=== PATIENT | female | born 1995 | race Caucasian/White ===

== ENCOUNTER 2017-05-01 08:32 | Outpatient (CLI) | payer BC ==
--- NOTE | 2017-05-01 09:55 | ULT ---
ABDOMINAL ULTRASOUND: Date: 05-01-17 Provided Clinical History: Abdominal pain. FINDINGS: Visualized abdominal aorta, IVC, and pancreas appear normal. Liver demonstrates no evidence for mass or intrahepatic biliary ductal dilatation. Common duct is not dilated. Gallbladder demonstrates no st ones, wall thickening or pericholecystic fluid. Kidneys demonstrate no hydronephrosis or mass. Spleen is not enlarged and demonstrates no focal abnormality. IMPRESSION: Unremarkable abdominal ultrasound. POS: [facility]
== END 2017-05-01 08:33 | disposition home or self-care (01) ==
LOC: ULT 08:32
PROVIDERS: ATTEND Internal Medicine
DX: R10.33 Periumbilical pain (principal); R19.4 Change in bowel habit; R14.2 Eructation
CPT/HCPCS: 76700

== ENCOUNTER 2017-06-24 07:35 | Outpatient (CLI) | payer BC ==
--- NOTE | 2017-06-24 11:06 | CT ---
CT ABDOMEN AND PELVIS WITH AND WITHOUT CONTRAST: Date: 06/24/17 HISTORY: R10.33. Periumbilical pain. COMPARISON: Ultrasound abdomen dated 05/01/17. FINDINGS: On the noncontrast CT, there is no nephroureterolithiasis or hydroureteronephrosis. No calculi within the urinary bladder, nor within the ureters. There are Schmorl's nodes throughout the thoracic spine. There is a circumferential disc bulge at L4- 5 narrowing the spinal canal approximately 7.0 mm, also causing moderate bilateral neural foraminal n arrowing. SI joints are without significant erosions. Pubic symphysis is without significant erosions. The lung bases are clear. No pericardial effusion. Aortoiliac contour is normal. No dilated loops of large or small bowel. Appendix is visualized and is normal. Spleen, liver, gallbl adder, and pancreas are all normal. No ventral hernia. No abnormal small or large bowel enhancement. No increased mesenteric fat. No hyperemia. Normal rotation proximal small bowel, as well as SMA and S MV. Kidneys are normal. IMPRESSION: Normal exam. POS: [facility]
[2017-06-24] MEDS ORDERED: Iopamidol 370 76% 100 ML VIAL ONE (16:08)
== END 2017-06-24 07:36 | disposition home or self-care (01) ==
LOC: CT 07:35 → EDSTATUS 09:00
PROVIDERS: ATTEND Internal Medicine
DX: R10.33 Periumbilical pain (principal); R19.4 Change in bowel habit
CPT/HCPCS: 74178